=== PATIENT | female | born 1975 ===

== ENCOUNTER → 2017-03-14 | Outpatient (CLI) | payer BC ==
--- NOTE | 2017-03-14 11:11 | US ---
EXAMINATION TYPE: US pelvic complete DATE OF EXAM: 03/14/2017 COMPARISON: NONE CLINICAL HISTORY: RLQ abdominal Pain R10.31. TECHNIQUE: Transabdominal (TA) Date of LMP: 03/04/17 EXAM MEASUREMENTS: Uterus: 9.5 x 3.6 x 4.6 cm Endometrial Stripe: 0.9 cm Right Ovary: 2.9 x 1.6 x 1.7 cm Left Ovary: 2.1 x 1.4 x 1.0 cm 1. Uterus: Anteverted wnl 2. Endometrium: wnl 3. Right Ovary: wnl 4. Left Ovary: wnl 5. Bilateral Adnexa: wnl 6. Posterior cul-de-sac: wnl IMPRESSION: 1. Unremarkable pelvic ultrasound.
--- NOTE | 2017-03-14 11:35 | US ---
EXAMINATION TYPE: US abdomen complete DATE OF EXAM: 03/14/2017 COMPARISON: NONE CLINICAL HISTORY: RLQ abdominal Pain R10.31. EXAM MEASUREMENTS: Liver Length: 12.4 cm Gallbladder Wall: 0.2 cm CBD: 0.2 cm Spleen: 8.6 cm Right Kidney: 9.1 x 3.4 x 4.6cm Left Kidney: 9.3 x 4.9 x 4.1 cm Pancreas: partially obscured by bowel gas Liver: wnl Gallbladder: wnl Evidence for sonographic Turk's sign: No CBD: wnl Spleen: wnl Right Kidney: inferior pole obscured by overlying bowel gas Left Kidney: superior pole obscured by overlying bowel gas Upper IVC: wnl Abd Aorta: wnl IMPRESSION: 1. Exam limited due to bowel gas. Visualized abdomen is unremarkable. 2. Appendix was not imaged during this examination.
== END | disposition home or self-care (01) ==
LOC: RADUSWWP 08:46
PROVIDERS: ATTEND Internal Medicine
DX: R10.31 Right lower quadrant pain (principal)
CPT/HCPCS: 76700; 76856

== ENCOUNTER → 2018-04-18 | Outpatient (CLI) | payer BC ==
--- NOTE | 2018-04-18 09:52 | MR ---
EXAMINATION TYPE: MR brain and iac wo/w con DATE OF EXAM: 04/18/2018 COMPARISON: NONE HISTORY: Acoustic nerve disorder, Hearing loss left ear per order. TECHNIQUE: Multiplanar, multisequence images of the brain and brainstem including internal auditory canals are a ll performed without and with IV contrast, utilizing 5.5 mL intravenous Gadavist . FINDINGS: Diffusion weighted images demonstrate no evidence of a recent infarct or other diffusion ab normality. There is no worrisome extra-axial fluid collection. The ventricular system and cisternal spaces are normal in size and appearance. The brain volume is age appropriate. There are scattered foci of T2 hyperintensity seen throughout the white matter bilaterally. Approximately 40-50 small sca ttered lesions are seen predominately throughout the superficial and deep white matter, for reference roughly 10-15 lesions are noted axial image 19. No lesion measures greater than 4 mm on long axis. Midline structures demonstrate normal morphology. The craniocervical junction appears within normal limits. Post contrast images demonstrate no definitive abnormal enhancement. Artifact suspected caus ing vague left cerebellar peduncle enhancement axial image 9. The dural venous sinuses appear patent. The visualized sinuses are clear and the globes are intact. No suspicious fluid signal is seen in mastoid air cells bilaterally. Vestibulocochlear complexes are symmetric and felt within normal limits. No suspicious enhancing cerebellopontine angle mass is ident ified bilaterally. Some artifact degradation noted on postcontrast images. IMPRESSION: 1. No specific finding identified on dedicated IAC imaging to account for patient's symptoms of left- sided hearing loss. 2. Moderate nonspecific white matter changes quite pronounced for patient's age, in patient of this a ge product of demyelinating disease needs to be excluded.
== END | disposition home or self-care (01) ==
LOC: RADMRIMAIN 07:47
PROVIDERS: ATTEND Otolaryngology
DX: R90.82 White matter disease, unspecified (principal); H91.92 Unspecified hearing loss, left ear; H93.3X2 Disorders of left acoustic nerve
CPT/HCPCS: 70553; A9581

== ENCOUNTER → 2018-04-27 | Outpatient (CLI) | payer BC ==
--- NOTE | 2018-04-30 12:45 | MM ---
Reason for exam: screening (asymptomatic). Last mammogram was performed 2 years and 7 months ago. History: Patient is nulliparous. Physical Findings: A clinical breast exam by your physician is recommended on an annual basis and results should be correlated with mammographic findings. MG 3D Screening Mammo W/Cad Bilateral CC and MLO view(s) were taken. Prior study comparison: September 21, 2015, bilateral MG 3d screening mammo w/cad. January 01, 2014, bilateral MG screening mammo w CAD. The breast tissue is extremely dense which could obscure a lesion on mammography. There is chronic nodularity. There is no dominant lesion. No significant changes when compared with prior studies. ASSESSMENT: Benign, BI-RAD 2 RECOMMENDATION: Routine screening mammogram of both breasts in 1 year.
== END | disposition home or self-care (01) ==
LOC: RADMAMWWP 16:31
PROVIDERS: ATTEND Internal Medicine
DX: Z12.31 Encounter for screening mammogram for malignant neoplasm of breast (principal)
CPT/HCPCS: 77063; 77067

== ENCOUNTER → 2018-05-28 | Outpatient (CLI) | payer BC ==
[2018-05-28 10:54] LABS: Partial Thromboplastin Time 24.9 sec (22.0-30.0); Prothrombin Time 9.5 sec (9.0-12.0)
[2018-05-28 11:17] LABS: T4, Free (Free Thyroxine) 0.99 ng/dL (0.78-2.19)
[2018-05-28 19:30] LABS: DNA Double-Stranded POSITIVE (NEGATIVE); RNP <0.2 AI
[2018-05-28 19:31] LABS: Cardiolipin Ab IgG Interp NEGATIVE (NEGATIVE); Cardiolipin Ab IgM Interp NEGATIVE (NEGATIVE); Cardiolipin IgA Antibody 1.2 U/mL; Cardiolipin IgM Antibody 8.3 U/mL
[2018-05-29 11:36] LABS: ANA Pattern Homogeneous; ANA Pattern 2 Nucleolar
[2018-05-29 11:44] LABS: APTT 46 Sec(s) (<43); APTT 1:1 Mix 41 Sec(s) (<43); Dilute Russell Viper Venom 36 Sec(s) (<44)
== END | disposition home or self-care (01) ==
LOC: LABWHC1 09:16
PROVIDERS: ATTEND Psychiatry & Neurology Neurology
DX: M54.2 Cervicalgia (principal); R93.89 Abnormal findings on diagnostic imaging of other specified body structures; R51 Headache; M79.10 Myalgia, unspecified site
CPT/HCPCS: 36415; 82550; 83090; 84439; 84443; 85610; 85613; 85652; 85730; 85732; 86038; 86039; 86147; 86225; 86235

== ENCOUNTER → 2019-05-09 | Outpatient (CLI) | payer BC ==
--- NOTE | 2019-05-13 10:33 | MM ---
Reason for exam: screening (asymptomatic). Last mammogram was performed 1 year ago. History: Patient is nulliparous. Took progesterone for 4 months beginning at age 41. Physical Findings: A clinical breast exam by your physician is recommended on an annual basis and results should be correlated with mammographic findings. MG 3D Screening Mammo W/Cad Bilateral CC and MLO view(s) were taken. Prior study comparison: April 27, 2018, bilateral MG 3d screening mammo w/cad. September 21, 2015, bilateral MG 3d screening mammo w/cad. The breast tissue is extremely dense which could obscure a lesion on mammography. Finding: There is a possibly new 5 mm mass located 6 cm from the nipple. New finding since April 27, 2018 and September 21, 2015. ASSESSMENT: Incomplete: need additional imaging evaluation, BI-RAD 0 RECOMMENDATION: Special view mammogram of the left breast. If lesion persists on supplemental views, image directed ultrasound is recommended. [facility] will attempt to contact patient to return for supplemental views and ultrasound if indicated.
== END | disposition home or self-care (01) ==
LOC: RADMAMWWP 15:23
PROVIDERS: ATTEND Internal Medicine
DX: Z12.31 Encounter for screening mammogram for malignant neoplasm of breast (principal)
CPT/HCPCS: 77063; 77067

== ENCOUNTER → 2019-06-03 | Outpatient (CLI) | payer BC ==
--- NOTE | 2019-06-03 14:47 | MM ---
Reason for exam: additional evaluation requested from abnormal screening. Last mammogram was performed 1 month ago. History: Patient is nulliparous. Took progesterone for 4 months beginning at age 41. Physical Findings: Nurse Summary: 0.5-1cm nodule in the left breast at 1 o'clock (nurse kp). MG 3D Work Up W/Cad LT Spot compression CC, spot compression MLO, and LM view(s) were taken of the left breast. Prior study comparison: May 09, 2019, bilateral MG 3d screening mammo w/cad. April 27, 2018, bilateral MG 3d screening mammo w/cad. The breast tissue is extremely dense which could obscure a lesion on mammography. The far posterior and medial asymmetric density does not persist on spot views. Palpable marker at 1 o'clock. These results were verbally communicated with the patient and result sheet given to the patient on 06/03/19. ASSESSMENT: Incomplete: need additional imaging evaluation, BI-RAD 0 RECOMMENDATION: Ultrasound of the left breast. (palpable and 12-3 o'clock)
--- NOTE | 2019-06-03 14:48 | USB ---
Reason for exam: additional evaluation requested from abnormal screening. History: Patient is nulliparous. Took progesterone for 4 months beginning at age 41. US Breast Workup Limited LT Left limited breast ultrasound including focal area of concern, retroareolar and axilla demonstrates no cystic or solid lesion seen. Scanned 12-3 o'clock. Dense tissues are seen. These results were verbally communicated with the patient and result sheet given to the patient on 06/03/19. ASSESSMENT: Benign, BI-RAD 2 RECOMMENDATION: Return to routine screening mammogram schedule for both breasts.
== END | disposition home or self-care (01) ==
LOC: RADMAMWWP 13:42
PROVIDERS: ATTEND Internal Medicine
DX: R92.8 Other abnormal and inconclusive findings on diagnostic imaging of breast (principal)
CPT/HCPCS: 77061; 77065

== ENCOUNTER → 2022-02-09 | Outpatient (CLI) | payer BC ==
--- NOTE | 2022-02-09 12:58 | CONS ---
CONSULTATION DATE OF SERVICE: 02/09/2022. 46-year-old lady has [facility] for excessive daytime sleepiness, multiple awakenings from sleep, episodes of sleeping for many hours for around 16-18 hours. 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 Subsequently, she works during the day, afternoon and nights and subsequently her sleep schedule is different, and she does not have by actually a regular sleep schedule. She usually goes to bed around 7 am and sleeps until 4:00. No problems with falling asleep. No TV in bedroom. During sleep, she does not snore, but according to her , she had some kind of loud breathing sounds during the sleep. Positive history of sleeptalking. The patient wakes up from sleep 4 times with nocturia. No clear history of hypnagogic hallucinations, sleep paralysis or cataplexy. During the day, the patient trying not to take naps because she knows that if she will take naps, then she goes to bed even later. Monroe Sleepiness Scale is 6. PAST MEDICAL HISTORY: Positive for hypertension, insufficient heart valve, enlarged pituitary gland, episodes of dizziness. PAST SURGICAL HISTORY: laparoscopy. MEDICATIONS: Losartan 50 mg once a day, propranolol 10 mg once a day, aspirin 81 mg 3 times a week, meclizine as needed. SOCIAL HISTORY: Positive for smoking about half pack a day on and off since age of 16. Alcohol consumption: None. FAMILY HISTORY: Positive for diabetes, arthritis. REVIEW OF SYSTEMS: Tiredness and sleepiness, multiple awakenings from sleep, episodes of very long sleep to 16-18 hours. PHYSICAL EXAM: lady without distress. BP 150/82, HR 62, RR 12, height 5 feet 1-1/2 inches, weight 103.8 pounds, body mass index 19.1, temperature 97.1, oxygen saturation at room air 99%. Oropharynx: Extremely low position of soft palate. Mallampati 4. Overbite 2 mm. Neck 12-1/2 inches in circumference. Neck: Supple, no JVD. Thyroid is not palpable. LUNGS: Clear to percussion and to auscultation. Good air exchange. No wheezing or rhonchi. HEART: S1, S2 regular. No murmurs, gallops, or rubs. ABDOMEN: Soft and nontender. Bowel sounds are present. No organomegaly appreciated. EXTREMITIES: No clubbing or cyanosis. [employer] [employer] [facility] DIRECT[employer]: Awake, alert, and oriented X3. Cranial nerves 2 to 7 intact. There is no fasciculation or atrophy. noted. No focal deficits observed. IMPRESSION: 1. Multiple awakenings from sleep up to 4 times with nocturia, witnessed episodes of loud breathing during sleep extremely low position of soft palate, Mallampati 4, retrognathia 2 to 3 mm. Possible obstructive sleep apnea-hypopnea syndrome. 2. 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 3. Episodes of sleep for so long as 18 hours. Most probably the reaction on insufficient sleep but differential diagnosis should include idiopathic hypersomnia. 4. Sleep delay syndrome. 5. Hypertension. 6. History of insufficient cardiac valve. 7. History of enlarged pituitary gland. 8. Episodes of dizziness. 9. Smoker for about 30 years on and off half pack a day. PLAN: 1. Home sleep apnea test to check patient's breathing during sleep. 2. Following plan after reviewing the results of home sleep apnea test. 3. If sleep test is positive for obstructive sleep apnea treatment with CPAP, if test is negative, polysomnogram with following multiple sleep latency test. 4. No driving if feeling sleepiness. 5. The patient should try to regularize her sleep schedule. Regular time in bed for at least 7-1/2 hours per night. Thank you very much for referring this patient for consultation. Sincerely, Terrance Ramirez MD, PhD, FAASM Diplomat of [place] [employer] Sleep Medicine Board of [place] [employer] [facility] [employer] MMODL / MARYN: [id number] /
== END ==
LOC: SLEEP 10:15
PROVIDERS: ATTEND Internal Medicine
DX: G47.21 Circadian rhythm sleep disorder, delayed sleep phase type (principal); R35.1 Nocturia; I10 Essential (primary) hypertension; Z86.79 Personal history of other diseases of the circulatory system; Z86.69 Personal history of other diseases of the nervous system and sense organs; F17.210 Nicotine dependence, cigarettes, uncomplicated
CPT/HCPCS: 99211

== ENCOUNTER 2022-06-16 10:50 | Day surgery (SDC) | payer BC ==
[~2022-06-16 10:50] MED LIST: LACTATED RINGERS 1,000 ML IV SCH; LIDOCAINE 1% (10MG/ML) FOR IV START INTRADERMA PRN
[2022-06-16 11:24] VITALS: RESP 18; TEMP 97.5
--- NOTE | 2022-06-16 12:11 | P.PCN ---
Date of Procedure: 06/16/22 Procedure(s) Performed: Preoperative diagnosis: Multiple sclerosis Post operative diagnoses: Multiple sclerosis Procedure= lumbar puncture Anesthesia= local infiltration with lidocaine 1% 3 mL. Condition: stable Complication: none. Description of the procedure procedure risk and benefits discussed with the patient and family, consent signed. Patient and the procedure area placed in lateral position , back prepped with chlorhexidine 3 times been local infiltration of the skin and subcutaneous tissue with lidocaine 1% 3 mL for skin and subcu interstitial frustrations at L4 5 levels then 22-gauge Quincke-type needle advanced slowly at L4- 5 interlaminar space there was positive cerebrospinal fluid which was clear, no heme, no paresthesia ,total of 8 ML of clear cerebrospinal fluid collected in 4 different tubes 2mL in each, then the needle removed and a Band-Aid applied and patient tolerated the procedure well without any complications.
[2022-06-16] MEDS ORDERED: IV FLUID CONTINUATION 1,000 ML IV ONE (12:14)
[2022-06-16 12:32] VITALS: BP 162/90; PULSE 60
[2022-06-16 12:41] LABS: ALT 32 U/L (4-34); AST 36 U/L (14-36)
[2022-06-16 12:58] LABS: T4, Free (Free Thyroxine) 1.28 ng/dL (0.78-2.19)
[2022-06-16 13:14] LABS: Glucose,CSF 54 mg/dL (40-70); Total Protein,CSF 32 mg/dL (12-60)
[2022-06-16 13:57] LABS: Appearance,CSF Clear; CSF Tube Number 4; Nucleated Cells, CSF 1 u/L (0-5); Red Blood Cell,CSF 0 u/L (0-10)
[2022-06-16 20:12] LABS: Rheumatoid Factor, Qnt 182 IU/mL (0-15)
[2022-06-17 01:20] LABS: Anti-Smith Ab Interp NEGATIVE (NEGATIVE); DNA Double-Stranded POSITIVE (NEGATIVE)
[2022-06-17 10:55] LABS: VDRL, Qualitative CSF Nonreactive (Nonreactive)
[2022-06-17 13:34] LABS: Lyme IgG/IgM 0.51 Index
[2022-06-20 13:19] LABS: IgG - CSF 1.8 mg/dL (0.0 - 3.4); IgG/Albumin Index (CSF) 0.36 (0.00 - 0.77)
== END 2022-06-16 12:50 | disposition home or self-care (01) ==
LOC: ORPAIN 10:50
PROVIDERS: ATTEND Specialist
DX: G35 Multiple sclerosis (principal)
CPT/HCPCS: 62270; 81025; 82040; 82042; 82784; 82945; 83916; 84157; 84439; 84443; 84450; 84460; 86038; 86039; 86225; 86235; 86431; 86592; 86618; 86780; 87801; 88108; 89050

== ENCOUNTER 2022-06-23 00:55 | Emergency (ER) | payer BC ==
[2022-06-23 01:07] VITALS: RESP 16
--- NOTE | 2022-06-23 01:37 | ED ---
Headache HPI - General Chief Complaint: Headache Stated Complaint: Blood Patch Time Seen by Provider: 06/23/22 01:22 Source: RN notes reviewed Mode of arrival: ambulatory Limitations: no limitations - History of Present Illness Initial Comments: This is a pleasant 47-year-old female presents to the emergency department complaining of a headache which she has had since last with after she had a lumbar puncture done. He had a lumbar puncture done after having an MRI for pituitary mass. There were some lesions seen on her MRI. This was done to rule out MS. Patient states that since having the lumbar puncture she is having intermittent headache up to 8 out of 10 in intensity. Exacerbated by upright position. Somewhat alleviated by supine position. no fever or chills, no changes in vision or hearing, no sore throat or difficulty with speech, no neck pain, no chest pain or shortness of breath, no abdominal pain, no nausea or vomiting, no changes in urination or bowel movements, no numbness or tingling, no extremity pain, no skin rashes or lesions. Past medical, surgical, social, and family history reviewed. MD Complaint: headache - Related Data Home Medications Medication Instructions Recorded Confirmed Aspirin 81 mg PO DAILY 06/16/22 06/16/22 Levothyroxine Sodium [Synthroid] 50 mg PO 06/16/22 Losartan Potassium 50 mg PO DAILY 06/16/22 06/16/22 Propranolol [Inderal] 15 mg PO DAILY 06/16/22 06/16/22 Allergies Allergy/AdvReac Type Severity Reaction Status Date / Time No Known Allergies Allergy Verified 06/23/22 01:02 Review of Systems ROS Statement: Those systems with pertinent positive or pertinent negative responses have been documented in the HPI. ROS Other: All systems not noted in ROS Statement are negative. Past Medical History Past Medical History: Hypertension, Thyroid Disorder Additional Past Medical History / Comment(s): vertigo History of Any Multi-Drug Resistant Organisms: None Reported Past Psychological History: No Psychological Hx Reported Smoking Status: Current every day smoker Past Alcohol Use History: Occasional Past Drug Use History: None Reported General Exam - General Exam Comments Initial Comments: Vital signs reviewed, patient does not appear to be ill or toxic. Cranial nerves II through XII are intact. Limitations: no limitations General appearance: alert, in no apparent distress Head exam: Present: atraumatic, normocephalic, normal inspection Eye exam: Present: normal appearance, PERRL, EOMI. Absent: scleral icterus, conjunctival injection, periorbital swelling ENT exam: Present: normal exam, normal oropharynx, mucous membranes moist, normal external ear exam. Absent: mucous membranes dry Neck exam: Present: normal inspection, full ROM. Absent: tenderness, meningismus, lymphadenopathy Respiratory exam: Present: normal lung sounds bilaterally. Absent: respiratory distress, wheezes, rales, rhonchi, stridor, chest wall tenderness, accessory muscle use Cardiovascular Exam: Present: regular rate, normal rhythm, normal heart sounds. Absent: systolic murmur, diastolic murmur, rubs, gallop, clicks GI/Abdominal exam: Present: soft, normal bowel sounds. Absent: distended, tenderness, guarding, rebound, rigid Extremities exam: Present: normal inspection, full ROM, normal capillary refill. Absent: tenderness, pedal edema, joint swelling, calf tenderness Back exam: Present: normal inspection Neurological exam: Present: alert, oriented X3, CN II-XII intact, normal gait. Absent: altered, abnormal gait, motor sensory deficit Psychiatric exam: Present: normal affect, normal mood Skin exam: Present: warm, dry, intact, normal color. Absent: rash Course Vital Signs 06/23/22 01:02 Temperature 98.2 F Pulse Rate 63 Respiratory 16 Rate Blood Pressure 152/83 O2 Sat by Pulse 98 Oximetry - Consultations Consultation #1: Case discussed with the on-call anesthesiologist who will present to the ER to perform a blood patch. Medical Decision Making - Medical Decision Making Patient did well after having a blood patch from the on-call anesthesiologist. Patient was improved. Patient was told to return to the ER for any signs or symptoms worsen. Told to return immediately if any other problems arise. All questions answered. Treatment plan discussed. Patient in agreement Every effort has been made to ensure accuracy of this dictation. However, due to the limitations of electronic medical records and dictation devices, errors in charting still occur. The case was discussed in detail with ED attending physician. Presentation, findings, treatment plan discussed in detail. Tracing Lathe Set Up Operator Dr. Holliday Disposition Clinical Impression: Lumbar puncture headache Disposition: HOME SELF-CARE Condition: Good Instructions (If sedation given, give patient instructions): Acute Headache (ED) Additional Instructions: Follow-up with your regular physician as directed. Return to the ER immediately if any symptoms worsen, new symptoms arise, or any other problems develop. Is patient prescribed a controlled substance at d/c from ED?: No Referrals: Rosalina Little MD [Primary Care Provider] - 1-2 days Time of Disposition: 02:32
--- NOTE | 2022-06-23 02:24 | P.PCN ---
Date of Procedure: 06/23/22 Procedure(s) Performed: Procedure= lumbar epidural blood patch. Preoperative diagnosis= postdural puncture headache. Postoperative diagnoses= post dural puncture headache. Indication for the procedure= patient developed headache after lumbar puncture which was done last week,the headache persists in spite of conservative treatment, there is no focal neurological deficit, no fever, no neck stiffness, headache worse with sitting and standing position, and improved with lying supine, for this reason patient is a good candidate for epidural blood patch. anesthesia= local infiltration with lidocaine 1% 3 mL. Complications= none. Description of the procedure= patient identified risks and benefits of the procedure explained to the patient and patient agreed with proceeding, vital signs monitored during the procedure and IV sedation given to decrease anxiety, Back lumbar area prepped with chlorhexidine 3 times, then drape applied the local infiltration of the skin and subcutaneous tissue with lidocaine 1% 3 mL at L5-S1 interlaminar space then 18-gauge Tuohy needle advanced slowly at L5-S1 interlaminar space, There was positive loss of resistance to normal saline, no heme no paresthesia no cerebrospinal fluid, then after that 15 ML of the blood taken from the patient under strict sterile technique, and after the left antecubital area prepped with a chlorhexidine 3 times using 20-gauge Angiocath, and under sterile technique the 15 ML of the block taken from the patient injected in the epidural space after negative aspiration for heme or CSF and there was no paresthesia then the needle removed intact the skin cleaned and the , bandage applied and patient discharged home from the emergency room, in stable condition after discharge criteria met, and patient will follow up with the clinic when necessary
[2022-06-23 03:08] VITALS: BP 170/83; PULSE 60; TEMP 98.6
== END 2022-06-23 03:10 | disposition home or self-care (01) ==
LOC: EC 00:55
DX: G97.1 Other reaction to spinal and lumbar puncture (principal); I10 Essential (primary) hypertension; E03.9 Hypothyroidism, unspecified; F17.200 Nicotine dependence, unspecified, uncomplicated; Z79.82 Long term (current) use of aspirin; Z79.890 Hormone replacement therapy; Z79.899 Other long term (current) drug therapy
CPT/HCPCS: 99284

== ENCOUNTER 2022-07-09 12:06 | Emergency (ER) | payer BC ==
[2022-07-09 13:02] VITALS: BP 152/98; PULSE 67; RESP 16; TEMP 98
[2022-07-09] MEDS ORDERED: SODIUM CHLORIDE 0.9% 1,000 ML IV STA (13:10)
[2022-07-09] MEDS ORDERED: DICYCLOMINE 10 MG/ML 2 ML AMP IM STA (13:12)
--- NOTE | 2022-07-09 13:15 | ED ---
Abdominal Pain HPI - General Chief Complaint: Abdominal Pain Stated Complaint: abd pain Time Seen by Provider: 07/09/22 13:03 Source: patient, RN notes reviewed Mode of arrival: ambulatory Limitations: no limitations - History of Present Illness Initial Comments: This is a pleasant 39-year-old female who presents with abdominal pain for the past 3 days. She is describing a cramping type abdominal pain in her mid to upper abdomen bilaterally. This comes and goes. Patient has also had diminished appetite. Denies any nausea or vomiting. No chest pain or shortness of breath. No changes in bowel movements or urination. She complains of lack of appetite. Patient previously had a tubal ligation, no other abdominal surgeries. No headache, no fever or chills, no changes in vision or hearing, no sore throat or difficulty with speech, no neck pain, no chest pain or shortness of breath, no abdominal pain, no nausea or vomiting, no changes in urination or bowel movements, no numbness or tingling, no extremity pain, no skin rashes or lesions. Past medical, surgical, social, and family history reviewed. MD Complaint: abdominal pain - Related Data Home Medications Medication Instructions Recorded Confirmed Aspirin 81 mg PO DAILY 06/16/22 06/16/22 Levothyroxine Sodium [Synthroid] 50 mg PO 06/16/22 Losartan Potassium 50 mg PO DAILY 06/16/22 06/16/22 Propranolol [Inderal] 15 mg PO DAILY 06/16/22 06/16/22 Allergies Allergy/AdvReac Type Severity Reaction Status Date / Time No Known Allergies Allergy Verified 07/09/22 13:02 Review of Systems ROS Statement: Those systems with pertinent positive or pertinent negative responses have been documented in the HPI. ROS Other: All systems not noted in ROS Statement are negative. Past Medical History Past Medical History: Hypertension, Thyroid Disorder Additional Past Medical History / Comment(s): vertigo History of Any Multi-Drug Resistant Organisms: None Reported Past Surgical History: No Surgical Hx Reported Past Psychological History: No Psychological Hx Reported Smoking Status: Current every day smoker Past Alcohol Use History: Occasional Past Drug Use History: None Reported General Exam Limitations: no limitations General appearance: alert, in no apparent distress Head exam: Present: atraumatic, normocephalic, normal inspection Eye exam: Present: normal appearance, PERRL, EOMI. Absent: scleral icterus, conjunctival injection, periorbital swelling ENT exam: Present: normal exam, normal oropharynx, mucous membranes dry, mucous membranes moist, TM's normal bilaterally, normal external ear exam Neck exam: Present: normal inspection, full ROM. Absent: tenderness, meningismus, lymphadenopathy Respiratory exam: Present: normal lung sounds bilaterally, chest wall tenderness, accessory muscle use, decreased breath sounds, prolonged expiratory. Absent: respiratory distress, wheezes, rales, rhonchi, stridor Cardiovascular Exam: Present: regular rate, normal rhythm, normal heart sounds. Absent: systolic murmur, diastolic murmur, rubs, gallop, clicks GI/Abdominal exam: Present: soft, tenderness (Patient tender through the mid abdomen bilaterally. No hepatosplenomegaly. Voluntary guarding.), guarding, hyperactive bowel sounds. Absent: distended, rebound, rigid Extremities exam: Present: normal inspection, full ROM, normal capillary refill. Absent: tenderness, pedal edema, joint swelling, calf tenderness Back exam: Present: normal inspection Neurological exam: Present: alert, oriented X3, CN II-XII intact Psychiatric exam: Present: normal affect, normal mood Skin exam: Present: warm, dry, intact, normal color. Absent: rash Course Vital Signs 07/09/22 12:59 Temperature 98 F Pulse Rate 67 Respiratory 16 Rate Blood Pressure 152/98 O2 Sat by Pulse 98 Oximetry - Reevaluation(s) Reevaluation #1: 07/09/22 16:13 Medical record is reviewed Symptoms are improved here in the emergency department Patient is informed of results and questions answered Patient in no distress - Consultations Consultation #1: Case was discussed in detail with the on-call surgeon, Dr. Espinoza who states the patient can follow-up. We'll have the patient call the office Monday to schedule an appointment on Monday. Medical Decision Making - Medical Decision Making Patient presents with intermittent bilateral upper abdominal pain. Most consistent with abdominal spasms. Patient has hyperactive bowel sounds. Patient states it seems that his positional as well. Patient complaining with diminished appetite as well. Consistent with cardiopulmonary disease. Gallbladder diet discussed in detail. Need for follow-up with the on-call surgeon discussed. Patient told to call the office Monday morning. Patient was in no pain at discharge. Signs stable, patient afebrile. Patient was told to return to the ER for any signs or symptoms worsen. Told to return immediately if any other problems arise. All questions answered. Treatment plan discussed. Patient in agreement Every effort has been made to ensure accuracy of this dictation. However, due to the limitations of electronic medical records and dictation devices, errors in charting still occur. Supervising physician Dr. Velez - Lab Data Result diagrams: 07/09/22 13:30 07/09/22 13:30 Lab Results 07/09/22 07/09/22 07/09/22 Range/Units 13:30 13:30 13:30 WBC 9.7 (3.8-10.6) k/uL RBC 4.48 (3.80-5.40) m/uL Hgb 13.7 (11.4-16.0) gm/dL Hct 40.8 (34.0-46.0) % MCV 90.9 (80.0-100.0) fL MCH 30.7 (25.0-35.0) pg MCHC 33.7 (31.0-37.0) g/dL RDW 13.4 (11.5-15.5) % Plt Count 250 (150-450) k/uL MPV 7.6 Neutrophils % 65 % Lymphocytes % 22 % Monocytes % 6 % Eosinophils % 4 % Basophils % 1 % Neutrophils # 6.3 (1.3-7.7) k/uL Lymphocytes # 2.1 (1.0-4.8) k/uL Monocytes # 0.6 (0-1.0) k/uL Eosinophils # 0.4 (0-0.7) k/uL Basophils # 0.1 (0-0.2) k/uL Sodium 136 L (137-145) mmol/L Potassium 4.5 (3.5-5.1) mmol/L Chloride 107 (98-107) mmol/L Carbon Dioxide 22 (22-30) mmol/L Anion Gap 7 mmol/L BUN 13 (7-17) mg/dL Creatinine 0.71 (0.52-1.04) mg/dL Est GFR (CKD-EPI)AfAm >90 (>60 ml/min/1.73 sqM) Est GFR (CKD-EPI)NonAf >90 (>60 ml/min/1.73 sqM) Glucose 96 (74-99) mg/dL Plasma Lactic Acid Bakari (0.7-2.0) mmol/L Calcium 9.2 (8.4-10.2) mg/dL Total Bilirubin 0.5 (0.2-1.3) mg/dL AST 49 H (14-36) U/L ALT 40 H (4-34) U/L Alkaline Phosphatase 80 (38-126) U/L C-Reactive Protein <0.5 (<1.0) mg/dL Total Protein 7.7 (6.3-8.2) g/dL Albumin 4.5 (3.5-5.0) g/dL Lipase 138 (23-300) U/L Urine Color Colorless Urine Appearance Clear (Clear) Urine pH 6.5 (5.0-8.0) Ur Specific [place] 1.008 (1.001-1.035) Urine Protein Negative (Negative) Urine Glucose (UA) Negative (Negative) Urine Ketones Negative (Negative) Urine Blood Negative (Negative) Urine Nitrite Negative (Negative) Urine Bilirubin Negative (Negative) Urine Urobilinogen <2.0 (<2.0) mg/dL Ur Leukocyte Esterase Negative (Negative) 07/09/22 Range/Units 13:30 WBC (3.8-10.6) k/uL RBC (3.80-5.40) m/uL Hgb (11.4-16.0) gm/dL Hct (34.0-46.0) % MCV (80.0-100.0) fL MCH (25.0-35.0) pg MCHC (31.0-37.0) g/dL RDW (11.5-15.5) % Plt Count (150-450) k/uL MPV Neutrophils % % Lymphocytes % % Monocytes % % Eosinophils % % Basophils % % Neutrophils # (1.3-7.7) k/uL Lymphocytes # (1.0-4.8) k/uL Monocytes # (0-1.0) k/uL Eosinophils # (0-0.7) k/uL Basophils # (0-0.2) k/uL Sodium (137-145) mmol/L Potassium (3.5-5.1) mmol/L Chloride (98-107) mmol/L Carbon Dioxide (22-30) mmol/L Anion Gap mmol/L BUN (7-17) mg/dL Creatinine (0.52-1.04) mg/dL Est GFR (CKD-EPI)AfAm (>60 ml/min/1.73 sqM) Est GFR (CKD-EPI)NonAf (>60 ml/min/1.73 sqM) Glucose (74-99) mg/dL Plasma Lactic Acid Bakari 0.7 (0.7-2.0) mmol/L Calcium (8.4-10.2) mg/dL Total Bilirubin (0.2-1.3) mg/dL AST (14-36) U/L ALT (4-34) U/L Alkaline Phosphatase (38-126) U/L C-Reactive Protein (<1.0) mg/dL Total Protein (6.3-8.2) g/dL Albumin (3.5-5.0) g/dL Lipase (23-300) U/L Urine Color Urine Appearance (Clear) Urine pH (5.0-8.0) Ur Specific [place] (1.001-1.035) Urine Protein (Negative) Urine Glucose (UA) (Negative) Urine Ketones (Negative) Urine Blood (Negative) Urine Nitrite (Negative) Urine Bilirubin (Negative) Urine Urobilinogen (<2.0) mg/dL Ur Leukocyte Esterase (Negative) - Radiology Data Radiology results: report reviewed, image reviewed My interpretation of the plain film x-rays and gallbladder ultrasound reveals a gallstone with some sludge on ultrasound. No acute findings on plain film x- ray. Concur with radiology interpretation. Disposition Clinical Impression: Cholelithiasis, Upper abdominal pain Disposition: HOME SELF-CARE Condition: Good Instructions (If sedation given, give patient instructions): Biliary Colic (ED), Gallstones (ED) Additional Instructions: Call at 8 AM Monday morning to schedule a follow-up appointment with the on-call surgeon for Monday. Adhere to a low-fat, low grease diet. Follow-up with your regular physician as directed. Return to the ER immediately if any symptoms worsen, new symptoms arise, or any other problems develop. Is patient prescribed a controlled substance at d/c from ED?: No Referrals: Liat Espinoza DO [Doctor of Osteopathic Medicine] - 07/11/22 8:00 am Time of Disposition: 16:11
[2022-07-09 13:42] LABS: Appearance,Urine Clear (Clear); Basophils # (A) 0.1 k/uL (0-0.2); Basophils % (A) 1 %; Bilirubin,Urine Negative (Negative); Blood,Urine Negative (Negative); Color,Urine Colorless; Eosinophils # (A) 0.4 k/uL (0-0.7); Eosinophils % (A) 4 %; Glucose,Urine (UA) Negative (Negative); HCT 40.8 % (34.0-46.0); HGB 13.7 gm/dL (11.4-16.0); Ketones,Urine Negative (Negative); Leukocyte Esterase,Urine Negative (Negative); Lymphocytes # (A) 2.1 k/uL (1.0-4.8); Lymphocytes % (A) 22 %; MCH 30.7 pg (25.0-35.0); MCHC 33.7 g/dL (31.0-37.0); MCV 90.9 fL (80.0-100.0); Mean Platelet Volume 7.6; Monocytes # (A) 0.6 k/uL (0-1.0); Monocytes % (A) 6 %; Neutrophils # (A) 6.3 k/uL (1.3-7.7); Neutrophils % (A) 65 %; Nitrite,Urine Negative (Negative); PH, Urine 6.5 (5.0-8.0); Platelet Count 250 k/uL (150-450); Protein,Urine Negative (Negative); RBC 4.48 m/uL (3.80-5.40); RDW 13.4 % (11.5-15.5); Specific Gravity,Urine 1.008 (1.001-1.035); Urobilinogen,Urine <2.0 mg/dL (<2.0); WBC 9.7 k/uL (3.8-10.6)
--- NOTE | 2022-07-09 13:49 | XR ---
EXAMINATION TYPE: XR abdomen acute w cxr DATE OF EXAM: 07/09/2022 COMPARISON: NONE HISTORY: Upper bilateral abdominal pain TECHNIQUE: Supine, upright, and left side down lateral decubitus views of the abdomen are obtained. FINDINGS: There is no evidence for pneumoperitoneum. The bowel gas pattern is unremarkable as there is air throughout nondilated small and large bowel. No sizeable air fluid levels. No mass effects are seen. No unusual calcifications. IMPRESSION: No significant abnormality seen.
[2022-07-09 13:56] LABS: ALT 40 U/L (4-34); AST 49 U/L (14-36); African American GFR (CKD) >90 (>60 ml/min/1.73 sqM); Albumin 4.5 g/dL (3.5-5.0); Alkaline Phosphatase 80 U/L (38-126); Anion Gap 7 mmol/L; Blood Urea Nitrogen 13 mg/dL (7-17); C Reactive Protein <0.5 mg/dL (<1.0); Calcium 9.2 mg/dL (8.4-10.2); Carbon Dioxide 22 mmol/L (22-30); Chloride 107 mmol/L (98-107); Glucose 96 mg/dL (74-99); Lipase 138 U/L (23-300); Non-African American GFR(CKD) >90 (>60 ml/min/1.73 sqM); Potassium 4.5 mmol/L (3.5-5.1); Sodium 136 mmol/L (137-145); Total Bilirubin 0.5 mg/dL (0.2-1.3); Total Protein 7.7 g/dL (6.3-8.2)
--- NOTE | 2022-07-09 15:29 | US ---
EXAMINATION TYPE: US gallbladder DATE OF EXAM: 07/09/2022 COMPARISON: US CLINICAL HISTORY: Upper abdominal pain. Pt states right side ABD pain TECHNIQUE: Multiple sonographic images of the right upper quadrant are obtained. FINDINGS: EXAM MEASUREMENTS: Liver Length: 14.3 cm Gallbladder Wall: 0.2 cm CBD: 0.5 cm Right Kidney: 9.1 x 3.0 x 4.1 cm PROGRAM MANAGEMENT ANALYST NOTES: Pancreas: Obscured by bowel gas Liver: wnl Gallbladder: 1.0 cm mobile gallstone with small amount of sludge, wall not thickened Evidence for sonographic Turk's sign: Yes CBD: wnl Right Kidney: wnl IMPRESSION: There is single gallstone. No dilated ducts. No focal liver defect.
== END 2022-07-09 16:49 | disposition home or self-care (01) ==
LOC: EC 12:06
DX: K80.20 Calculus of gallbladder without cholecystitis without obstruction (principal); I10 Essential (primary) hypertension; E07.9 Disorder of thyroid, unspecified; F17.200 Nicotine dependence, unspecified, uncomplicated; Z79.890 Hormone replacement therapy; Z79.82 Long term (current) use of aspirin; Z79.899 Other long term (current) drug therapy
CPT/HCPCS: 96360 ×2; 96372 ×2; 99284 ×2; 36415; 80053; 83605; 83690; 85025; 86140; 81003; 74022; 76705; J0500

== ENCOUNTER 2022-11-25 20:21 | Emergency (ER) | payer BC ==
[2022-11-25 20:51] VITALS: RESP 18; TEMP 98.2
[2022-11-25 21:22] LABS: Appearance,Urine Clear (Clear); Bilirubin,Urine Negative (Negative); Blood,Urine Negative (Negative); Color,Urine Colorless; Glucose,Urine (UA) Negative (Negative); Ketones,Urine Negative (Negative); Leukocyte Esterase,Urine Negative (Negative); Nitrite,Urine Negative (Negative); PH, Urine 6.5 (5.0-8.0); Protein,Urine Negative (Negative); Specific Gravity,Urine 1.002 (1.001-1.035); Urobilinogen,Urine <2.0 mg/dL (<2.0)
[2022-11-25 23:16] LABS: Basophils % (A) 0 %; Eosinophils # (A) 0.4 k/uL (0-0.7); Eosinophils % (A) 6 %; HCT 41.6 % (34.0-46.0); HGB 14.2 gm/dL (11.4-16.0); Lymphocytes # (A) 2.1 k/uL (1.0-4.8); Lymphocytes % (A) 32 %; MCH 30.6 pg (25.0-35.0); MCHC 34.1 g/dL (31.0-37.0); MCV 89.9 fL (80.0-100.0); Mean Platelet Volume 7.6; Monocytes # (A) 0.4 k/uL (0-1.0); Monocytes % (A) 6 %; Neutrophils # (A) 3.5 k/uL (1.3-7.7); Neutrophils % (A) 53 %; Platelet Count 258 k/uL (150-450); RBC 4.63 m/uL (3.80-5.40); RDW 13.5 % (11.5-15.5); WBC 6.6 k/uL (3.8-10.6)
[2022-11-25 23:28] LABS: Albumin 4.1 g/dL (3.5-5.0); Calcium 9.2 mg/dL (8.4-10.2); Magnesium 1.9 mg/dL (1.6-2.3); Potassium 4.3 mmol/L (3.5-5.1); Total Bilirubin 0.2 mg/dL (0.2-1.3); Total Protein 7.2 g/dL (6.3-8.2)
--- NOTE | 2022-11-25 23:46 | CT ---
EXAMINATION TYPE: CT brain wo con CT DLP: 1173.4 mGycm, Automated exposure control for dose reduction was used. DATE OF EXAM: 11/25/2022 11:18 PM COMPARISON: 04/18/2018. CLINICAL INDICATION:Female, 47 years old with history of LUE weakness, h/o brain lesions, pituitary t umor, LUE WEAKNESS, H/O BRAIN LESIONS, PITUITARY TUMOR TECHNIQUE: Brain: Axial CT images of the brain were obtained with coronal and sagittal reformats created and rev iewed. Contrast used: None. Oral contrast used: None. FINDINGS: Brain: Extra-axial spaces: No abnormal extra-axial fluid collections. Ventricular system: Within normal limits Cerebral parenchyma: No acute intraparenchymal hemorrhage or mass effect. The rangel-white junction is well differentiated. Pituitary tumor remains present extending out of the sella turcica measuring 10 x 6 x 6 mm. White matter changes are less well appreciated on the CT exam Cerebellum: Unremarkable. Mass effect: No evidence of midline shift. Intracranial vasculature: unremarkable Soft tissues: Normal. Calvarium/osseous structures: No depressed skull fracture. Paranasal sinuses and mastoid air cells: Mild scattered paranasal sinus disease. Visualized orbits: Orbital contents are intact. IMPRESSION: 1. No acute intracranial process. Consider follow-up MRI. 2. Persistent pituitary tumor measuring 10 x 6 x 6 mm which may be fractionally larger than prior in 2018. However direct comparisons given differences in modality in technique is difficult. Findings f avored to represent pituitary adenoma.
--- NOTE | 2022-11-25 23:52 | CT ---
EXAMINATION TYPE: CT abdomen pelvis w con CT DLP: 1790.2 mGycm, Automated exposure control for dose reduction was used. DATE OF EXAM: 11/25/2022 11:24 PM COMPARISON: none CLINICAL INDICATION:Female, 47 years old with history of LUQ pain; abd pain TECHNIQUE: Axial CT of the abdomen and pelvis. Sagittal and coronal reformats were created on a [employer] workstation. Contrast used:100 mL of Isovue 300 with IV Contrast, Oral contrast used: without Oral Contrast FINDINGS: LOWER CHEST: Unremarkable ABDOMEN LIVER: The liver left hepatic lobe extends across midline and that surround the spleen. GALLBLADDER AND BILE DUCTS: The gallbladder surgically absent. PANCREAS: Unremarkable. SPLEEN: Unremarkable. ADRENAL GLANDS: Unremarkable. KIDNEYS AND URETERS: No evidence of hydronephrosis or renal calculus. The ureters are unremarkable. PELVIS BLADDER: Unremarkable REPRODUCTIVE: Somewhat ill-defined appearance of the cervix and lower uterine segment. ABDOMEN & PELVIS STOMACH AND BOWEL: No evidence of bowel obstruction. Small bowel feces is seen throughout the abdomen . The appendix is not definitively visualized. PERITONEUM/RETROPERITONEUM: No evidence of pneumoperitoneum or free fluid. VASCULATURE: No evidence of aortic aneurysm. MUSCULOSKELETAL: No acute osseous abnormalities LYMPH NODES: No gross evidence for lymphadenopathy. SOFT TISSUE/ABDOMINAL WALL: Unremarkable IMPRESSION: 1. Small bowel feces throughout the abdomen correlate for ileus/fecal stasis. No other acute left up per quadrant process to definitively visualized. 2. No evidence for obstructive uropathy. 3. Poor delineation of the lower uterine segment and cervix. Correlation with recent Pap smear and c onsideration for nonemergent pelvic ultrasound.
[2022-11-25 23:54] VITALS: BP 140/86; PULSE 87
--- NOTE | 2022-11-25 23:57 | XR ---
EXAMINATION TYPE: XR chest 2V DATE OF EXAM: 11/25/2022 11:24 PM COMPARISON: None TECHNIQUE: XR chest 2V Frontal and lateral views of the chest. CLINICAL INDICATION:Female, 47 years old with history of CP; FINDINGS: Lungs/Pleura: There is no evidence of pleural effusion, focal consolidation, or pneumothorax. Pulmonary vascularity: Unremarkable. Heart/mediastinum: Cardiomediastinal silhouette is unremarkable. Musculoskeletal: No acute osseous pathology. IMPRESSION: No acute cardiopulmonary disease/process.
--- NOTE | 2022-11-26 00:27 | ED ---
General Adult HPI - General Chief complaint: Abdominal Pain Stated complaint: Weakness left arm/abd-back pain Time Seen by Provider: 11/25/22 21:36 Source: patient Mode of arrival: ambulatory Limitations: no limitations - History of Present Illness Initial comments: This is a 47-year-old female with a significant past medical history including recently diagnosed lupus, or a, previous pituitary tumor and "brain lesions" presents emergency department for left-sided abdominal pain and intermittent left arm numbness. The patient stated that the left arm numbness has been intermittent and consistent over the last several weeks but stated that the left-sided upper abdominal pain was increasing and worsening over the last 2 days which made her come to the emergency department. On physical exam, the patient was resting in bed comfortably without any acute distress. The patient denied any nausea and vomiting. The patient denied any other acute pain or complaints at this time. - Related Data Home Medications Medication Instructions Recorded Confirmed Aspirin 81 mg PO DAILY 06/16/22 06/16/22 Levothyroxine Sodium [Synthroid] 50 mg PO 06/16/22 Losartan Potassium 50 mg PO DAILY 06/16/22 06/16/22 Propranolol [Inderal] 15 mg PO DAILY 06/16/22 06/16/22 Allergies Allergy/AdvReac Type Severity Reaction Status Date / Time No Known Allergies Allergy Verified 07/09/22 13:02 Review of Systems ROS Statement: Those systems with pertinent positive or pertinent negative responses have been documented in the HPI. ROS Other: All systems not noted in ROS Statement are negative. Past Medical History Past Medical History: Hypertension, Rheumatoid Arthritis (RA), Thyroid Disorder Additional Past Medical History / Comment(s): vertigo, sjorgren;s syndrome History of Any Multi-Drug Resistant Organisms: None Reported Past Surgical History: No Surgical Hx Reported Past Psychological History: No Psychological Hx Reported Smoking Status: Current every day smoker Past Alcohol Use History: Occasional Past Drug Use History: None Reported General Exam Limitations: no limitations General appearance: alert, in no apparent distress Head exam: Present: atraumatic, normocephalic, normal inspection Eye exam: Present: normal appearance, PERRL Pupils: Present: normal accommodation ENT exam: Present: normal exam, normal oropharynx, mucous membranes moist Neck exam: Present: normal inspection, full ROM Respiratory exam: Present: normal lung sounds bilaterally Cardiovascular Exam: Present: regular rate, normal rhythm, normal heart sounds GI/Abdominal exam: Present: soft, tenderness (Mild TTP over the left upper quadrant), normal bowel sounds Extremities exam: Present: normal inspection, full ROM Back exam: Present: normal inspection, full ROM Neurological exam: Present: alert, oriented X3, CN II-XII intact Psychiatric exam: Present: normal affect, normal mood Skin exam: Present: warm, dry Course Vital Signs 11/25/22 11/25/22 20:44 23:51 Temperature 98.2 F Pulse Rate 63 87 Respiratory 18 18 Rate Blood Pressure 151/80 140/86 O2 Sat by Pulse 100 98 Oximetry EKG Findings - EKG Comments: EKG Findings:: In EKG was obtained and was interpreted by myself showing a rate of 58, UT interval 118, QRS duration of 81 and QTC of 434. This EKG showed a s inus bradycardia with no ST segment elevation or depression noted. Medical Decision Making - Medical Decision Making Was pt. sent in by a medical professional or institution (, PA, BATTERY CONTAINER INSPECTOR, urgent care, hospital, or fpc...) When possible be specific @ -No Did you speak to anyone other than the patient for history (EMS, parent, family, police, friend...)? What history was obtained from this source @ -No Did you review nursing and triage notes (agree or disagree)? Why? @ -I reviewed and agree with nursing and triage notes Were old charts reviewed (outside hosp., previous admission, EMS record, old EKG, old radiological studies, urgent care reports/EKG's, fpc records)? Report findings @ -No old charts were reviewed Differential Diagnosis (chest pain, altered mental status, abdominal pain women, abdominal pain men, vaginal bleeding, weakness, fever, dyspnea, syncope, headache, dizziness, GI bleed, back pain, seizure, CVA, palpatations, mental health)? @ -Worsening pituitary tumor, worsening brain lesions, diverticulitis EKG interpreted by me (3pts min.). @ -As above X-rays interpreted by me (1pt min.). @ -Chest x-ray was obtained and was interpreted by myself showing no acute cardiopulmonary disease CT interpreted by me (1pt min.). @ -CT head and CT abdomen and pelvis with contrast was obtained and was interpreted by myself showing no acute intracranial process. There is a persistent pituitary tumor measuring 10 x 6 x 6 mm which may be fractured larger than prior exam however this was compared to an MRI the abdomen and pelvis with contrast was obtained and was interpreted by myself showing small bowel feces throughout the abdomen to correlate for ileus. There was no other acute left upper quadrant process noted. There is no evidence for obstructive uropathy. U/S interpreted by me (1pt. min.). @ -None done What testing was considered but not performed or refused? (CT, X-rays, U/S, labs)? Why? @ -None What meds were considered but not given or refused? Why? @ -None Did you discuss the management of the patient with other professionals (professionals i.e. Dr., PA, BATTERY CONTAINER INSPECTOR, lab, RT, psych nurse, social insurance analyst, gastroenterology technician, teacher, accounting officer, caser)? Give summary @ -No Was smoking cessation discussed for >3mins.? @ -No Was critical care preformed (if so, how long)? @ -No Were there social determinants of health that impacted care today? How? (Homele ssness, low income, unemployed, alcoholism, drug addiction, transportation, low edu. Level, literacy, decrease access to med. care, group home, rehab)? @ -No Was there de-escalation of care discussed even if they declined (Discuss DNR or withdrawal of care, Hospice)? DNR status @ -No What co-morbidities impacted this encounter? (DM, HTN, Smoking, COPD, CAD, Cancer, CVA, ARF, Chemo, Hep., AIDS, mental health diagnosis, sleep apnea, morbid obesity)? @ -Lupus, rheumatoid arthritis, pituitary tumor Was patient admitted / discharged? Hospital course, mention meds given and route, prescriptions, significant lab abnormalities, going to OR and other pertinent info. @ -The patient was seen and evaluated in the emergency department. Physical exam, the patient was resting in bed without any acute distress. Vital signs admission were stable. All laboratory workup was obtained and was within normal limits. Imaging was also within normal limits and was at her baseline. There was no known etiology for her symptoms and she likely had abdominal pain secondary to constipation versus abdominal strain. The patient does not have an ileus as the patient had a normal bowel movement this morning. The patient denied any other acute pain or complaints and did state that she had a follow-up MRI scheduled for tomorrow. The patient was advised to follow-up with this imaging and to report to her primary care physician for further workup and evaluation. The patient also stated that she has a "team" of physicians that she has follow-up for that did advise her to follow-up with them. The patient was agreeable to this and all her questions were answered. The patient was discharged home in stable condition with her . Undiagnosed new problem with uncertain prognosis? @ -No Drug Therapy requiring intensive monitoring for toxicity (Heparin, Nitro, Insulin, Cardizem)? @ -No Were any procedures done? @ -No Diagnosis/symptom? @ -Abdominal pain, NOS Acute, or Chronic, or Acute on Chronic? @ -Acute on chronic Uncomplicated (without systemic symptoms) or Complicated (systemic symptoms)? @ -Uncomplicated Side effects of treatment? @ -No Exacerbation, Progression, or Severe Exacerbation? @ -No Poses a threat to life or bodily function? How? (Chest pain, [place], [place], pneumonia, PE, COPD, DKA, ARF, appy, cholecystitis, CVA, Diverticulitis, Homicidal, Suicidal, threat to staff... and all critical care pts) @ -No - Lab Data Result diagrams: 11/25/22 22:27 11/25/22 22:27 Lab Results 11/25/22 11/25/22 11/25/22 Range/Units 21:01 22:27 22:27 WBC 6.6 (3.8-10.6) k/uL RBC 4.63 (3.80-5.40) m/uL Hgb 14.2 (11.4-16.0) gm/dL Hct 41.6 (34.0-46.0) % MCV 89.9 (80.0-100.0) fL MCH 30.6 (25.0-35.0) pg MCHC 34.1 (31.0-37.0) g/dL RDW 13.5 (11.5-15.5) % Plt Count 258 (150-450) k/uL MPV 7.6 Neutrophils % 53 % Lymphocytes % 32 % Monocytes % 6 % Eosinophils % 6 % Basophils % 0 % Neutrophils # 3.5 (1.3-7.7) k/uL Lymphocytes # 2.1 (1.0-4.8) k/uL Monocytes # 0.4 (0-1.0) k/uL Eosinophils # 0.4 (0-0.7) k/uL Basophils # 0.0 (0-0.2) k/uL Sodium 137 (137-145) mmol/L Potassium 4.3 (3.5-5.1) mmol/L Chloride 102 (98-107) mmol/L Carbon Dioxide 28 (22-30) mmol/L Anion Gap 7 mmol/L BUN 14 (7-17) mg/dL Creatinine 1.12 H (0.52-1.04) mg/dL Est GFR (CKD-EPI)AfAm 67 (>60 ml/min/1.73 sqM) Est GFR (CKD-EPI)NonAf 58 (>60 ml/min/1.73 sqM) Glucose 98 (74-99) mg/dL Calcium 9.2 (8.4-10.2) mg/dL Magnesium 1.9 (1.6-2.3) mg/dL Total Bilirubin 0.2 (0.2-1.3) mg/dL AST 33 (14-36) U/L ALT 37 H (4-34) U/L Alkaline Phosphatase 68 (38-126) U/L Troponin I (0.000-0.034) ng/mL Total Protein 7.2 (6.3-8.2) g/dL Albumin 4.1 (3.5-5.0) g/dL Lipase 158 (23-300) U/L Urine Color Colorless Urine Appearance Clear (Clear) Urine pH 6.5 (5.0-8.0) Ur Specific [place] 1.002 (1.001-1.035) Urine Protein Negative (Negative) Urine Glucose (UA) Negative (Negative) Urine Ketones Negative (Negative) Urine Blood Negative (Negative) Urine Nitrite Negative (Negative) Urine Bilirubin Negative (Negative) Urine Urobilinogen <2.0 (<2.0) mg/dL Ur Leukocyte Esterase Negative (Negative) 11/25/22 Range/Units 22:27 WBC (3.8-10.6) k/uL RBC (3.80-5.40) m/uL Hgb (11.4-16.0) gm/dL Hct (34.0-46.0) % MCV (80.0-100.0) fL MCH (25.0-35.0) pg MCHC (31.0-37.0) g/dL RDW (11.5-15.5) % Plt Count (150-450) k/uL MPV Neutrophils % % Lymphocytes % % Monocytes % % Eosinophils % % Basophils % % Neutrophils # (1.3-7.7) k/uL Lymphocytes # (1.0-4.8) k/uL Monocytes # (0-1.0) k/uL Eosinophils # (0-0.7) k/uL Basophils # (0-0.2) k/uL Sodium (137-145) mmol/L Potassium (3.5-5.1) mmol/L Chloride (98-107) mmol/L Carbon Dioxide (22-30) mmol/L Anion Gap mmol/L BUN (7-17) mg/dL Creatinine (0.52-1.04) mg/dL Est GFR (CKD-EPI)AfAm (>60 ml/min/1.73 sqM) Est GFR (CKD-EPI)NonAf (>60 ml/min/1.73 sqM) Glucose (74-99) mg/dL Calcium (8.4-10.2) mg/dL Magnesium (1.6-2.3) mg/dL Total Bilirubin (0.2-1.3) mg/dL AST (14-36) U/L ALT (4-34) U/L Alkaline Phosphatase (38-126) U/L Troponin I <0.012 (0.000-0.034) ng/mL Total Protein (6.3-8.2) g/dL Albumin (3.5-5.0) g/dL Lipase (23-300) U/L Urine Color Urine Appearance (Clear) Urine pH (5.0-8.0) Ur Specific [place] (1.001-1.035) Urine Protein (Negative) Urine Glucose (UA) (Negative) Urine Ketones (Negative) Urine Blood (Negative) Urine Nitrite (Negative) Urine Bilirubin (Negative) Urine Urobilinogen (<2.0) mg/dL Ur Leukocyte Esterase (Negative) Disposition Clinical Impression: Abdominal pain Disposition: HOME SELF-CARE Condition: Stable Instructions (If sedation given, give patient instructions): Abdominal Pain (ED) Is patient prescribed a controlled substance at d/c from ED?: No Referrals: Rosalina Little MD [Primary Care Provider] - 1-2 days Time of Disposition: 23:50
== END 2022-11-26 00:44 | disposition home or self-care (01) ==
LOC: EC 20:21
DX: R10.12 Left upper quadrant pain (principal); I10 Essential (primary) hypertension; E07.9 Disorder of thyroid, unspecified; M06.9 Rheumatoid arthritis, unspecified; F17.200 Nicotine dependence, unspecified, uncomplicated; Z79.82 Long term (current) use of aspirin; Z79.890 Hormone replacement therapy; Z79.899 Other long term (current) drug therapy
CPT/HCPCS: 36415; 93005; 80053; 83690; 83735; 84484; 85025; 81003; 71046; 70450; 74177; 99284; Q9967

== ENCOUNTER → 2024-11-13 | Outpatient (CLI) | payer BC ==
--- NOTE | 2024-11-13 12:21 | MM ---
Reason for Exam: Screening (asymptomatic). Last mammogram was performed 3 year(s) and 2 month(s) ago. Patient History: Menarche at age 16. Patient has no children. Progesterone for 4 months from age 41 until age 41. Risk Values: Pamella 5 year model risk: 1.0%. NCI Lifetime model risk: 9.1%. Prior Study Comparison: 05/09/2019 Bilateral Screening Mammogram, [facility]. 06/03/2019 Left Diagnostic Mammogram, [facility]. 09/24/2021 Bilateral Screening Mammogram, [facility]. Tissue Density: The breasts are heterogeneously dense, which may obscure small masses. Findings: Analyzed By CAD. There is no suspicious group of microcalcifications or new suspicious mass in either breast. Overall Assessment: Benign, BI-RAD 2 Management: Screening Mammogram of both breasts in 1 year. . Patient should continue monthly self-breast exams. A clinical breast exam by your physician is recommended on an annual basis. This exam should not preclude additional follow-up of suspicious palpable abnormalities. Note on Pamella scores and lifetime risk: 1. A Pamella score greater than 3% is considered moderate risk. If this is the case, consider specialist referral to assess eligibility for a risk reducing agent. 2. If overall lifetime risk for the development of breast cancer is 20% or higher, the patient may qualify for future screening with alternating mammogram and breast MRI. [facility], , 11/13/2024 12:19 PM. Electronically signed and approved by: Blake Flood M.D. Radiologis
== END | disposition home or self-care (01) ==
LOC: RADMAMWWP 11:18
PROVIDERS: ATTEND Internal Medicine
DX: Z12.31 Encounter for screening mammogram for malignant neoplasm of breast (principal); R92.333 Mammographic heterogeneous density, bilateral breasts
CPT/HCPCS: 77063; 77067